=== PATIENT | female | born 1960 | race Two or more races ===

== ENCOUNTER 2022-06-19 17:02 | Emergency (ER) | payer MEDICAID ==
[~2022-06-19] VITALS: Ht 160 cm; Wt 63.6 kg
[2022-06-19 17:03] VITALS: BP 133/79
[2022-06-19] MEDS ORDERED: LIDOCAINE 5% TRANSDERMAL PATCH TD ONE (19:30)
[2022-06-19] MEDS ORDERED: KETOROLAC TROMETHAMINE 30 MG/ML VIAL IM ONE (19:30)
[2022-06-19] MEDS ORDERED: CYCLOBENZAPRINE HCL 10 MG TABLET PO ONE (19:30)
[2022-06-19 19:35] LABS: APPEARANCE,URINE CLEAR (CLEAR); BILIRUBIN,URINE NEGATIVE (NEGATIVE); GLUCOSE, URINE (UA) NEGATIVE (NEGATIVE); KETONES,URINE TRACE mg/dL (NEGATIVE); LEUKOCYTE ESTERASE ,URINE MODERATE (NEGATIVE); NITRATE,URINE NEGATIVE (NEGATIVE); OCCULT BLOOD,URINE NEGATIVE (NEGATIVE); PROTEIN,URINE 30-70 mg/dL (NEGATIVE); SPECIFIC GRAVITIY, URINE 1.034 (1.003-1.030); UROBILINOGEN,URINE <=1.0 mg/dL (<=1.0)
[2022-06-19 19:39] LABS: BACTERIA,URINE Moderate /HPF (None Seen); RBC,URINE 0-2 /HPF (0-2); SQUAMOUS EPITHELIAL CELL,UR Moderate /LPF (None Seen)
[2022-06-19] MEDS ORDERED: CEPH-558 PO (20:11)
[2022-06-19] MEDS ORDERED: CYCL-448 PO (20:11)
[2022-06-19] MEDS ORDERED: LIDO1ADH23 TP (20:11)
[2022-06-19] MEDS ORDERED: IBUP-1492 PO (20:11)
== END 2022-06-19 21:30 | disposition home or self-care (01) ==
LOC: EMS 17:06
DX: M54.50 Low back pain, unspecified (principal); N39.0 Urinary tract infection, site not specified; F20.9 Schizophrenia, unspecified; Z98.890 Other specified postprocedural states
CPT/HCPCS: 99283; 81001; 87086; 87186; 96372; J1885